=== PATIENT | male | born 1965 | race African-American/Black ===

== ENCOUNTER 2016-11-07 13:16 | Inpatient (IN) | payer MEDICARE, MEDICAID ==
[~2016-11-07] VITALS: Ht 172.7 cm; Wt 81.4 kg
[~2016-11-07 13:16] MED LIST: CHOL200035 PO; DIVA500T35 PO; OLAN10TA3 PO; OMEP20 PO
[2016-11-07 14:51] LABS: GLUCOSE,POINT OF CARE 88 MG/DL (70-110)
[2016-11-07 15:26] LABS: BASOPHILS % (AUTO) 0.2 % (0.0-2.0); EOSINOPHILS % (AUTO) 1.7 % (1.0-6.0); HEMATOCRIT 36.6 % (41-53); LYMPHOCYTES # (AUTO) 1.9 K/uL (1.0-4.8); LYMPHOCYTES % (AUTO) 22.7 % (22.0-44.0); MEAN CORPUSCULAR HEMOGLOBIN 27.9 pg (26.0-34.0); MEAN CORPUSCULAR HGB CONC 32.9 G/dL (31.0-37.0); MEAN CORPUSCULAR VOLUME 85 fL (80-100); MONOCYTES # (AUTO) 0.7 K/uL (0.1-1.0); MONOCYTES % (AUTO) 7.9 % (2.0-9.0); NEUTROPHILS # (AUTO) 5.7 K/uL (1.8-7.7); NEUTROPHILS % (AUTO) 67.5 % (40.0-70.0); PLATELET COUNT (AUTO) 350 K/uL (150-450); RED BLOOD CELL COUNT(AUTO) 4.32 MIL/uL (4.50-5.90); RED CELL DISTRIBUTION WIDTH 15.9 % (11.5-14.5); WHITE BLOOD COUNT (AUTO) 8.5 K/uL (4.5-11.0)
[2016-11-07 15:42] LABS: ANION GAP 9 mmol/L (8-16); CALCIUM, TOTAL 8.2 mg/dL (8.8-10.5); CARBON DIOXIDE 27 mmol/L (22-29); CHLORIDE 101 mmol/L (98-107); CREATININE 1.02 mg/dL (0.60-1.30); GLOMERULAR FILTR. RATE CALC > 60 mL/min (>60); POTASSIUM 3.8 mmol/L (3.5-5.1); SODIUM SERUM 137 mmol/L (136-145); UREA NITROGEN, BLOOD 16 mg/dL (7-18)
[2016-11-07 15:49] LABS: ALANINE AMINOTRANSFERASE 29 U/L (12-78); ALBUMIN 3.2 g/dL (3.4-5.0); ASPARTATE AMINOTRANSFERASE 21 U/L (15-37); BILIRUBIN,TOTAL 0.4 mg/dL (0.1-1.0)
[2016-11-07 15:52] LABS: VALPROIC ACID < 3 mcg/mL (50-100)
[2016-11-07] MEDS ORDERED: QUEtiapine FUMARATE 100 MG TABLET PO ONE (17:00)
[2016-11-07] MEDS ORDERED: GuaiFENesin/D-METHORPHAN [SUGAR-FREE] 200-20MG/10 ML SYRUP UDCUP PO PRN (17:30)
[2016-11-07] MEDS ORDERED: ZOLPIDEM TARTRATE 10 MG TABLET PO PRN (17:30)
[2016-11-07] MEDS ORDERED: MAGNESIUM HYDROXIDE SUSPENSION 30 ML UDCUP PO PRN (17:30)
[2016-11-07] MEDS ORDERED: PROMETHAZINE HCL 25 MG TABLET PO PRN (17:30)
[2016-11-07] MEDS ORDERED: MAG HYDROX/AL HYDROX/SIMETH ES 30 ML SUSPENSION UDCUP PO PRN (17:30)
[2016-11-07] MEDS ORDERED: QUEtiapine FUMARATE 100 MG TABLET PO PRN (17:30)
[2016-11-07] MEDS ORDERED: LOPERAMIDE HCL 2 MG CAPSULE PO PRN (17:30)
[2016-11-07] MEDS ORDERED: HydrOXYzine PAMOATE 50 MG CAPSULE PO PRN (17:30)
[2016-11-07] MEDS ORDERED: LORazepam 2 MG TABLET PO PRN (17:30)
[2016-11-07] MEDS ORDERED: TUBERCULIN, PURIFIED PROTEIN DERIVATIVE 5 TU/0.1 ML SYG ID ONE (17:30)
[2016-11-07 18:32] VITALS: BP 142/74
[2016-11-07] MEDS: THIAMINE HCL 100 MG TABLET PO SCH (18:55)
[2016-11-07] MEDS: QUEtiapine FUMARATE 300 MG TABLET PO SCH (20:48)
[2016-11-07] MEDS: TraZODone HCL 100 MG TABLET PO SCH (20:48)
[2016-11-07] MEDS: DIVALPROEX SODIUM 500 MG ER TABLET PO SCH (20:48)
[2016-11-07] MEDS ORDERED: INFLUENZA VIRUS VACCINE QVS 2016-17 (3YR+)/PF 60 MCG/0.5 ML SYRINGE IM ONE (21:00)
[2016-11-07 21:21] LABS: APPEARANCE,URINE TURBID (CLEAR); GLUCOSE, URINE (UA) NEGATIVE (NEGATIVE); KETONES,URINE NEGATIVE (NEGATIVE); LEUKOCYTE ESTERASE ,URINE NEGATIVE (NEGATIVE); OCCULT BLOOD,URINE NEGATIVE (NEGATIVE); PH,URINE 5.5 (5.0-8.0); PROTEIN,URINE NEGATIVE (NEGATIVE)
[2016-11-07 21:24] LABS: ADD UA MICROSCOPIC YES
[2016-11-07 21:25] LABS: AMORPHOUS SEDIMENT,UR Moderate /LPF (None Seen); RBC,URINE None Seen /HPF (0-2); WBC,URINE None Seen /HPF (0-5)
[2016-11-08 01:30] VITALS: BP 145/89
[2016-11-08 08:11] VITALS: BP 112/71
[2016-11-08] MEDS: THIAMINE HCL 100 MG TABLET PO SCH ×2 (08:38→16:10)
[2016-11-08] MEDS: MULTIVITAMINS WITH MINERALS, THERAPEUTIC TABLET PO SCH (08:38)
[2016-11-08] MEDS: FOLIC ACID 1 MG TABLET PO SCH (08:38)
[2016-11-08] MEDS: OMEPRAZOLE 20 MG CAPSULE PO SCH (08:42)
[2016-11-08] MEDS: NICOTINE 14 MG/24 HOUR PATCH TD SCH (09:00)
[2016-11-08] MEDS ORDERED: OLAN7.5T2 PO (11:05)
[2016-11-08] MEDS: TraZODone HCL 100 MG TABLET PO SCH (20:15)
[2016-11-08] MEDS: QUEtiapine FUMARATE 300 MG TABLET PO SCH (20:15)
[2016-11-08] MEDS: DIVALPROEX SODIUM 500 MG ER TABLET PO SCH (20:15)
[2016-11-08 20:47] VITALS: BP 123/87
[2016-11-09] MEDS ORDERED: PNEUMOCOCCAL VACCINE POLYVALENT 0.5 ML VIAL [PPSV23] IM ONE (02:30)
[2016-11-09] MEDS: FOLIC ACID 1 MG TABLET PO SCH (08:39)
[2016-11-09] MEDS: NALTREXONE HCL 50 MG TABLET PO SCH (08:39)
[2016-11-09] MEDS: MULTIVITAMINS WITH MINERALS, THERAPEUTIC TABLET PO SCH (08:39)
[2016-11-09] MEDS: OMEPRAZOLE 20 MG CAPSULE PO SCH (08:39)
[2016-11-09] MEDS: THIAMINE HCL 100 MG TABLET PO SCH ×2 (08:40→16:08)
[2016-11-09] MEDS: NICOTINE 14 MG/24 HOUR PATCH TD SCH (08:45)
[2016-11-09 10:04] VITALS: BP 113/80
[2016-11-09] MEDS: QUEtiapine FUMARATE 300 MG TABLET PO SCH (20:48)
[2016-11-09] MEDS: DIVALPROEX SODIUM 500 MG ER TABLET PO SCH (20:48)
[2016-11-09] MEDS: TraZODone HCL 100 MG TABLET PO SCH (20:48)
[2016-11-09 20:53] VITALS: BP 120/78
[2016-11-10 05:16] VITALS: BP_SYST 122; BP_SYST 127; BP_DIAS 66; BP_DIAS 75
[2016-11-10] MEDS: NALTREXONE HCL 50 MG TABLET PO SCH (08:34)
[2016-11-10] MEDS: OMEPRAZOLE 20 MG CAPSULE PO SCH (08:34)
[2016-11-10] MEDS: THIAMINE HCL 100 MG TABLET PO SCH ×2 (08:34→16:16)
[2016-11-10] MEDS: FOLIC ACID 1 MG TABLET PO SCH (08:34)
[2016-11-10] MEDS: MULTIVITAMINS WITH MINERALS, THERAPEUTIC TABLET PO SCH (08:34)
[2016-11-10] MEDS: NICOTINE 14 MG/24 HOUR PATCH TD SCH (08:37)
[2016-11-10 09:37] VITALS: BP 129/80
[2016-11-10] MEDS: QUEtiapine FUMARATE 300 MG TABLET PO SCH (20:18)
[2016-11-10] MEDS: DIVALPROEX SODIUM 500 MG ER TABLET PO SCH (20:18)
[2016-11-10] MEDS: TraZODone HCL 100 MG TABLET PO SCH (20:18)
[2016-11-10 20:54] VITALS: BP 125/74
[2016-11-11] MEDS: NALTREXONE HCL 50 MG TABLET PO SCH (08:39)
[2016-11-11] MEDS: THIAMINE HCL 100 MG TABLET PO SCH ×2 (08:39→17:39)
[2016-11-11] MEDS: OMEPRAZOLE 20 MG CAPSULE PO SCH (08:39)
[2016-11-11] MEDS: MULTIVITAMINS WITH MINERALS, THERAPEUTIC TABLET PO SCH (08:39)
[2016-11-11] MEDS: FOLIC ACID 1 MG TABLET PO SCH (08:39)
[2016-11-11] MEDS: NICOTINE 14 MG/24 HOUR PATCH TD SCH (08:39)
[2016-11-11 10:26] VITALS: BP 124/79
[2016-11-11 16:04] VITALS: BP 133/74
[2016-11-11] MEDS: DIVALPROEX SODIUM 500 MG ER TABLET PO SCH (20:29)
[2016-11-11] MEDS: TraZODone HCL 100 MG TABLET PO SCH (20:30)
[2016-11-11] MEDS: QUEtiapine FUMARATE 200 MG TABLET PO SCH (20:33)
[2016-11-12 00:51] VITALS: BP 124/74
[2016-11-12] MEDS: ACETAMINOPHEN 325 MG TABLET PO PRN (00:54)
[2016-11-12 08:06] VITALS: BP 154/93
[2016-11-12] MEDS: THIAMINE HCL 100 MG TABLET PO SCH ×2 (08:19→16:02)
[2016-11-12] MEDS: OMEPRAZOLE 20 MG CAPSULE PO SCH (08:19)
[2016-11-12] MEDS: FOLIC ACID 1 MG TABLET PO SCH (08:19)
[2016-11-12] MEDS: MULTIVITAMINS WITH MINERALS, THERAPEUTIC TABLET PO SCH (08:19)
[2016-11-12] MEDS: NALTREXONE HCL 50 MG TABLET PO SCH (08:19)
[2016-11-12] MEDS: NICOTINE 14 MG/24 HOUR PATCH TD SCH (08:20)
[2016-11-12 17:09] VITALS: BP 126/88
[2016-11-12] MEDS: DIVALPROEX SODIUM 500 MG ER TABLET PO SCH (20:11)
[2016-11-12] MEDS: TraZODone HCL 100 MG TABLET PO SCH (20:11)
[2016-11-12] MEDS: QUEtiapine FUMARATE 200 MG TABLET PO SCH (20:12)
[2016-11-13] MEDS: FOLIC ACID 1 MG TABLET PO SCH (08:15)
[2016-11-13] MEDS: OMEPRAZOLE 20 MG CAPSULE PO SCH (08:15)
[2016-11-13] MEDS: THIAMINE HCL 100 MG TABLET PO SCH ×2 (08:15→16:05)
[2016-11-13] MEDS: MULTIVITAMINS WITH MINERALS, THERAPEUTIC TABLET PO SCH (08:15)
[2016-11-13] MEDS: NALTREXONE HCL 50 MG TABLET PO SCH (08:15)
[2016-11-13] MEDS: NICOTINE 14 MG/24 HOUR PATCH TD SCH (08:16)
[2016-11-13] MEDS: DULoxetine HCL 20 MG CAPSULE PO SCH (08:16)
[2016-11-13 09:26] VITALS: BP 113/61
[2016-11-13] MEDS: ACETAMINOPHEN 325 MG TABLET PO PRN (14:49)
[2016-11-13 16:15] VITALS: BP 137/79
[2016-11-13] MEDS: TraZODone HCL 100 MG TABLET PO SCH (20:12)
[2016-11-13] MEDS: DIVALPROEX SODIUM 500 MG ER TABLET PO SCH (20:12)
[2016-11-13] MEDS: QUEtiapine FUMARATE 200 MG TABLET PO SCH (20:12)
[2016-11-14] MEDS: OMEPRAZOLE 20 MG CAPSULE PO SCH (07:59)
[2016-11-14] MEDS: FOLIC ACID 1 MG TABLET PO SCH (07:59)
[2016-11-14] MEDS: MULTIVITAMINS WITH MINERALS, THERAPEUTIC TABLET PO SCH (07:59)
[2016-11-14] MEDS: NALTREXONE HCL 50 MG TABLET PO SCH (07:59)
[2016-11-14] MEDS: DULoxetine HCL 20 MG CAPSULE PO SCH (07:59)
[2016-11-14 08:00] VITALS: BP 133/78
[2016-11-14] MEDS: NICOTINE 14 MG/24 HOUR PATCH TD SCH (08:03)
[2016-11-14] MEDS: THIAMINE HCL 100 MG TABLET PO SCH ×2 (08:04→17:09)
[2016-11-14] MEDS ORDERED: TRIAMCINOLONE 0.1% 15 GM OINTMENT TP PRN (10:15)
[2016-11-14 16:46] VITALS: BP 111/69
[2016-11-14] MEDS: QUEtiapine FUMARATE 200 MG TABLET PO SCH (20:03)
[2016-11-14] MEDS: DIVALPROEX SODIUM 500 MG ER TABLET PO SCH (20:03)
[2016-11-14] MEDS: TraZODone HCL 100 MG TABLET PO SCH (20:04)
[2016-11-15] MEDS: DULoxetine HCL 30 MG CAPSULE PO SCH (08:30)
[2016-11-15] MEDS: MULTIVITAMINS WITH MINERALS, THERAPEUTIC TABLET PO SCH (08:30)
[2016-11-15] MEDS: OMEPRAZOLE 20 MG CAPSULE PO SCH (08:30)
[2016-11-15] MEDS: THIAMINE HCL 100 MG TABLET PO SCH ×2 (08:30→16:45)
[2016-11-15] MEDS: FOLIC ACID 1 MG TABLET PO SCH (08:30)
[2016-11-15] MEDS: NALTREXONE HCL 50 MG TABLET PO SCH (08:30)
[2016-11-15] MEDS: NICOTINE 14 MG/24 HOUR PATCH TD SCH (08:32)
[2016-11-15 09:17] VITALS: BP 146/93
[2016-11-15 16:58] VITALS: BP 125/89
[2016-11-15] MEDS: DIVALPROEX SODIUM 500 MG ER TABLET PO SCH (20:15)
[2016-11-15] MEDS: TraZODone HCL 100 MG TABLET PO SCH (20:15)
[2016-11-15] MEDS: QUEtiapine FUMARATE 200 MG TABLET PO SCH (20:15)
[2016-11-16] MEDS: THIAMINE HCL 100 MG TABLET PO SCH ×2 (08:53→16:10)
[2016-11-16] MEDS: MULTIVITAMINS WITH MINERALS, THERAPEUTIC TABLET PO SCH (08:53)
[2016-11-16] MEDS: NICOTINE 14 MG/24 HOUR PATCH TD SCH (08:53)
[2016-11-16] MEDS: OMEPRAZOLE 20 MG CAPSULE PO SCH (08:53)
[2016-11-16] MEDS: NALTREXONE HCL 50 MG TABLET PO SCH (08:54)
[2016-11-16] MEDS: FOLIC ACID 1 MG TABLET PO SCH (08:54)
[2016-11-16] MEDS: DULoxetine HCL 30 MG CAPSULE PO SCH (08:54)
[2016-11-16 09:30] VITALS: BP 123/69
[2016-11-16 17:09] VITALS: BP 133/80
[2016-11-16] MEDS: TraZODone HCL 100 MG TABLET PO SCH (20:08)
[2016-11-16] MEDS: DIVALPROEX SODIUM 500 MG ER TABLET PO SCH (20:08)
[2016-11-16] MEDS: QUEtiapine FUMARATE 200 MG TABLET PO SCH (20:08)
[2016-11-17] MEDS: MULTIVITAMINS WITH MINERALS, THERAPEUTIC TABLET PO SCH (08:49)
[2016-11-17] MEDS: OMEPRAZOLE 20 MG CAPSULE PO SCH (08:49)
[2016-11-17] MEDS: THIAMINE HCL 100 MG TABLET PO SCH (08:50)
[2016-11-17] MEDS: NALTREXONE HCL 50 MG TABLET PO SCH (08:50)
[2016-11-17] MEDS: DULoxetine HCL 30 MG CAPSULE PO SCH (08:51)
[2016-11-17] MEDS: FOLIC ACID 1 MG TABLET PO SCH (08:51)
[2016-11-17] MEDS: NICOTINE 14 MG/24 HOUR PATCH TD SCH (08:51)
[2016-11-17 09:00] VITALS: BP 133/93
[2016-11-17 17:18] VITALS: BP 123/78
[2016-11-17] MEDS: DIVALPROEX SODIUM 500 MG ER TABLET PO SCH (20:32)
[2016-11-17] MEDS: QUEtiapine FUMARATE 200 MG TABLET PO SCH (20:32)
[2016-11-17] MEDS: TraZODone HCL 100 MG TABLET PO SCH (20:33)
[2016-11-18 08:30] VITALS: BP 120/77
[2016-11-18] MEDS: OMEPRAZOLE 20 MG CAPSULE PO SCH (08:31)
[2016-11-18] MEDS: NALTREXONE HCL 50 MG TABLET PO SCH (08:31)
[2016-11-18] MEDS: DULoxetine HCL 30 MG CAPSULE PO SCH (08:31)
[2016-11-18] MEDS: MULTIVITAMINS WITH MINERALS, THERAPEUTIC TABLET PO SCH (08:31)
[2016-11-18] MEDS: NICOTINE 14 MG/24 HOUR PATCH TD SCH (08:32)
[2016-11-18 17:25] VITALS: BP 122/67
[2016-11-18] MEDS: ACETAMINOPHEN 325 MG TABLET PO PRN (17:42)
[2016-11-18] MEDS: TraZODone HCL 100 MG TABLET PO SCH (20:00)
[2016-11-18] MEDS: QUEtiapine FUMARATE 200 MG TABLET PO SCH (20:00)
[2016-11-18] MEDS: DIVALPROEX SODIUM 500 MG ER TABLET PO SCH (20:00)
[2016-11-19 08:30] VITALS: BP 115/74
[2016-11-19] MEDS: NALTREXONE HCL 50 MG TABLET PO SCH (08:30)
[2016-11-19] MEDS: DULoxetine HCL 30 MG CAPSULE PO SCH (08:30)
[2016-11-19] MEDS: NICOTINE 14 MG/24 HOUR PATCH TD SCH (08:31)
[2016-11-19] MEDS: OMEPRAZOLE 20 MG CAPSULE PO SCH (08:32)
[2016-11-19] MEDS: MULTIVITAMINS WITH MINERALS, THERAPEUTIC TABLET PO SCH (08:32)
[2016-11-19 13:09] VITALS: BP 136/76
[2016-11-19] MEDS: ACETAMINOPHEN 325 MG TABLET PO PRN (13:09)
[2016-11-19 17:31] VITALS: BP 106/77
[2016-11-19] MEDS ORDERED: IBUPROFEN 600 MG TABLET PO PRN (18:00)
[2016-11-19] MEDS: DIVALPROEX SODIUM 500 MG ER TABLET PO SCH (22:10)
[2016-11-19] MEDS: QUEtiapine FUMARATE 200 MG TABLET PO SCH (22:11)
[2016-11-19] MEDS ORDERED: BENZOCAINE 10% 7 GM GEL TP PRN (23:00)
[2016-11-20 04:34] VITALS: BP 125/88
[2016-11-20 08:00] VITALS: BP 148/73
[2016-11-20] MEDS: MULTIVITAMINS WITH MINERALS, THERAPEUTIC TABLET PO SCH (08:42)
[2016-11-20] MEDS: OMEPRAZOLE 20 MG CAPSULE PO SCH (08:42)
[2016-11-20] MEDS: NICOTINE 14 MG/24 HOUR PATCH TD SCH (08:43)
[2016-11-20] MEDS: DULoxetine HCL 20 MG CAPSULE PO SCH (08:43)
[2016-11-20] MEDS: NALTREXONE HCL 50 MG TABLET PO SCH (08:43)
[2016-11-20] MEDS: ACETAMINOPHEN 325 MG TABLET PO PRN (08:47)
[2016-11-20 16:31] VITALS: BP 125/75
[2016-11-20] MEDS: DIVALPROEX SODIUM 500 MG ER TABLET PO SCH (19:58)
[2016-11-20] MEDS: QUEtiapine FUMARATE 200 MG TABLET PO SCH (19:58)
[2016-11-21] MEDS: DULoxetine HCL 20 MG CAPSULE PO SCH (08:17)
[2016-11-21] MEDS: NICOTINE 14 MG/24 HOUR PATCH TD SCH (08:17)
[2016-11-21] MEDS: OMEPRAZOLE 20 MG CAPSULE PO SCH (08:17)
[2016-11-21] MEDS: MULTIVITAMINS WITH MINERALS, THERAPEUTIC TABLET PO SCH (08:18)
[2016-11-21] MEDS: NALTREXONE HCL 50 MG TABLET PO SCH (08:18)
[2016-11-21 10:07] VITALS: BP 132/92
[2016-11-21] MEDS ORDERED: DULO20CA30 PO (11:28)
[2016-11-21] MEDS ORDERED: QUET200T29 PO (11:28)
[2016-11-21] MEDS ORDERED: NALT50 PO (11:28)
[2016-11-21] MEDS ORDERED: DIVA500T52 PO (11:28)
[2016-11-21 17:00] VITALS: BP 122/72
[2016-11-21] MEDS: DIVALPROEX SODIUM 500 MG ER TABLET PO SCH (20:24)
[2016-11-21] MEDS: QUEtiapine FUMARATE 200 MG TABLET PO SCH (20:24)
[2016-11-22 08:00] VITALS: BP 148/95
[2016-11-22] MEDS: DULoxetine HCL 20 MG CAPSULE PO SCH ×2 (09:16→09:43)
[2016-11-22] MEDS ORDERED: MV-M1TAB2 PO (09:37)
[2016-11-22] MEDS: MULTIVITAMINS WITH MINERALS, THERAPEUTIC TABLET PO SCH (09:43)
[2016-11-22] MEDS: NICOTINE 14 MG/24 HOUR PATCH TD SCH (09:43)
[2016-11-22] MEDS: NALTREXONE HCL 50 MG TABLET PO SCH (09:43)
[2016-11-22] MEDS: OMEPRAZOLE 20 MG CAPSULE PO SCH (09:43)
== END 2016-11-22 11:00 | disposition home or self-care (01) | DRG 885 ==
LOC: EMS 13:18 → 3EX 17:51
PROVIDERS: ADMIT Psychiatry & Neurology Psychiatry; ATTEND Psychiatry & Neurology Psychiatry
DX: F25.0 Schizoaffective disorder, bipolar type (principal); R45.851 Suicidal ideations; J44.9 Chronic obstructive pulmonary disease, unspecified; I10 Essential (primary) hypertension; F32.9 Major depressive disorder, single episode, unspecified; F15.10 Other stimulant abuse, uncomplicated; E55.9 Vitamin D deficiency, unspecified; L30.9 Dermatitis, unspecified; K59.00 Constipation, unspecified; K21.9 Gastro-esophageal reflux disease without esophagitis; F17.210 Nicotine dependence, cigarettes, uncomplicated; F25.1 Schizoaffective disorder, depressive type; Z91.14 Patient's other noncompliance with medication regimen; Z59.0 Homelessness; Z88.0 Allergy status to penicillin; Z79.899 Other long term (current) drug therapy; Z71.6 Tobacco abuse counseling; Z81.8 Family history of other mental and behavioral disorders; Z80.41 Family history of malignant neoplasm of ovary
CPT/HCPCS: 82962; 97161; 97165; 99285; G0480